=== PATIENT | female | born 1990 | race Caucasian/White ===

== ENCOUNTER 2018-09-22 11:35 | Outpatient (CLI) | payer MEDICAID ==
[~2018-09-22] VITALS: Ht 167.6 cm; Wt 58.6 kg
[~2018-09-22 11:35] MED LIST: DOXY1TAB3 PO; ONDA4TAB7 PO; PEDI18TA2 PO
[2018-09-22 12:40] VITALS: BP 112/65
== END 2018-09-22 13:15 | disposition home or self-care (01) ==
LOC: LDOP 11:35 → MERGE 11:35 → LDOP 13:15
PROVIDERS: ATTEND Obstetrics & Gynecology
DX: O26.893 Other specified pregnancy related conditions, third trimester (principal); Z3A.36 36 weeks gestation of pregnancy
CPT/HCPCS: 59025; 99211; G0463

== ENCOUNTER 2018-09-22 21:36 | Inpatient (IN) | payer MEDICAID ==
[~2018-09-22] VITALS: Ht 167.6 cm; Wt 59.0 kg
[2018-09-22 22:00] VITALS: BP 106/62
[2018-09-22 22:36] LABS: BASOPHILS # (AUTO) 0.04 x10^3/uL (0-0.1); BASOPHILS % (AUTO) 0 % (0-1); EOSINOPHILS # (AUTO) 0.01 x10^3/uL (0-0.4); EOSINOPHILS % (AUTO) 0 % (1-7); LYMPHOCYTES # (AUTO) 1.58 x10^3/uL (1-3.4); LYMPHOCYTES % (AUTO) 13 % (22-44); MD NO; MEAN CORPUSCULAR HEMOGLOBIN 28.9 pg (27.0-34.8); MEAN CORPUSCULAR HGB CONC 33.1 g/dL (32.4-35.8); MEAN CORPUSCULAR VOLUME 87.3 fL (80-100); MEAN PLATELET VOLUME 7.6 fL (7.4-10.4); MONOCYTES # (AUTO) 0.56 x10^3/uL (0.2-0.8); MONOCYTES % (AUTO) 5 % (2-9); NEUTROPHILS # (AUTO) 9.68 x10^3/uL (1.8-6.8); NEUTROPHILS % (AUTO) 82 % (42-75); PLATELET COUNT 206 x10^3/uL (130-400); RED BLOOD COUNT 3.88 x10^6/uL (3.82-5.3); RED CELL DISTRIBUTION WIDTH 14.9 % (9.6-15.2)
[2018-09-22] MEDS: LACTATED RINGERS 1,000 ML IV SCH ×2 (22:52→23:55)
[2018-09-22] MEDS ORDERED: FENTANYL PF 100 MCG/2ML ONE (23:09)
[2018-09-22] MEDS ORDERED: CALCIUM CARBONATE 500 MG TAB.CHEW ONE (23:19)
[2018-09-22] MEDS ORDERED: CALCIUM CARBONATE 500 MG TAB.CHEW PO PRN (23:30)
[2018-09-22] MEDS ORDERED: FENTANYL PF 100 MCG/2ML IV PRN (23:30)
[2018-09-22] MEDS ORDERED: FENTANYL PF 100 MCG/2ML IVPush PRN (23:30)
[2018-09-23] MEDS ORDERED: AMPICILLIN 2 GM in SODIUM CHLORIDE 0.9% 100 ML IVPB STA (00:04)
[2018-09-23] MEDS ORDERED: NEWBORN KIT ONE (00:04)
[2018-09-23] MEDS ORDERED: OXYTOCIN 30U/ 0.9% NaCL 500ML 500 ML IV ONE (00:04)
[2018-09-23] MEDS ORDERED: LIDOCAINE 1%, 20ML ONE (00:05)
[2018-09-23] MEDS ORDERED: OXYTOCIN 30U/ 0.9% NaCL 500ML 500 ML ONE (00:05)
[2018-09-23] MEDS ORDERED: MISOPROSTOL 200 MCG TABLET ONE (00:05)
[2018-09-23] MEDS ORDERED: SODIUM CITRATE/CITRIC ACID 15 ML UDC PO PRN (00:30)
[2018-09-23] MEDS ORDERED: ALUMINUM/MAG/SIMETHICONE 30 ML UDC PO PRN (00:30)
[2018-09-23] MEDS ORDERED: AMPICILLIN 1 GM in SODIUM CHLORIDE 0.9% 100 ML IVPB SCH (00:30)
[2018-09-23] MEDS ORDERED: ONDANSETRON 2MG/ML, 2ML IVPush PRN ×2 (00:30→03:30)
[2018-09-23] MEDS ORDERED: FENTANYL PF 100 MCG/2ML ONE ×3 (00:37→02:04)
[2018-09-23] MEDS ORDERED: FENTANYL/BUPIV./NS/PF 250 ML EPIDCONT SCH ×2 (00:43→01:16)
[2018-09-23] MEDS ORDERED: FENTANYL PF 100 MCG/2ML IVPush PRN (01:00)
[2018-09-23] MEDS ORDERED: FENTANYL PF 100 MCG/2ML IV PRN ×2 (01:00→03:30)
[2018-09-23] MEDS ORDERED: BUPIVACAINE 0.25% ONE (01:13)
[2018-09-23] MEDS ORDERED: LACTATED RINGERS 1,000 ML IV SCH (01:16)
[2018-09-23] MEDS ORDERED: NALOXONE 0.4 MG/ML, 1ML IVPush PRN (01:30)
[2018-09-23] MEDS ORDERED: LACTATED RINGERS 1,000 ML IVBOLUS PRN (01:30)
[2018-09-23] MEDS ORDERED: EPHEDRINE 50 MG/ML, 1ML IVPush PRN ×2 (01:30→03:30)
[2018-09-23] MEDS ORDERED: LIDOCAINE/PF 1.5%-EPI 1:200K, 30ML ONE (01:48)
[2018-09-23] MEDS ORDERED: FAMOTIDINE 20 MG/2 ML IVPush ONE (02:02)
[2018-09-23] MEDS ORDERED: OXYTOCIN 10 UNITS/ML, 1ML ONE (02:03)
[2018-09-23] MEDS ORDERED: ONDANSETRON 2MG/ML, 2ML ONE (02:03)
[2018-09-23] MEDS ORDERED: CEFAZOLIN 1,000 MG ONE (02:03)
[2018-09-23] MEDS ORDERED: SODIUM BICARBONATE 1 MEQ/ML, 50ML VIAL ONE (02:03)
[2018-09-23] MEDS ORDERED: EPHEDRINE 50 MG/ML, 1ML ONE (02:03)
[2018-09-23] MEDS ORDERED: KETOROLAC 30 MG/1 ML ONE (02:03)
[2018-09-23] MEDS ORDERED: DEXAMETHASONE 4 MG/ML, 1ML ONE (02:03)
[2018-09-23] MEDS ORDERED: PHENYLEPHRINE 10 MG/ML ONE (02:03)
[2018-09-23] MEDS ORDERED: SODIUM CITRATE/CITRIC ACID 15 ML UDC ONE (02:05)
[2018-09-23] MEDS ORDERED: HYDROmorphone 1 MG/ML, 1ML INJ IV PRN (03:20)
[2018-09-23] MEDS ORDERED: HYDROmorphone 2 MG/ML, 1ML ONE (03:26)
[2018-09-23] MEDS ORDERED: HYDROmorphone 2 MG/ML, 1ML IVPush PRN (03:30)
[2018-09-23] MEDS ORDERED: OXYcodone 5 MG/5 ML ORAL.SOL UDC PO PRN (03:30)
[2018-09-23] MEDS ORDERED: hydrALAzine 20 MG/ML, 1ML IV PRN (03:30)
[2018-09-23] MEDS ORDERED: PROMETHAZINE 25 MG/ML, 1ML IV PRN (03:30)
[2018-09-23] MEDS ORDERED: MEPERIDINE/PF 25MG/0.5ML IVPush PRN (03:30)
[2018-09-23] MEDS ORDERED: LABETALOL 5MG/ML, 20ML IV PRN (03:30)
[2018-09-23] MEDS ORDERED: HYDROcodone/APAP 7.5-325MG/15ML UDC PO PRN (03:30)
[2018-09-23] MEDS ORDERED: MIDAZOLAM 1 MG/ML, 2ML IV PRN (03:30)
[2018-09-23] MEDS: HYDROmorphone 2 MG/ML, 1ML IVPush PRN ×3 (03:35→04:47)
[2018-09-23] MEDS: LACTATED RINGERS 1,000 ML IV SCH ×5 (03:42→17:17)
[2018-09-23 05:40] VITALS: BP 107/66
[2018-09-23] MEDS: OXYTOCIN 30U/ 0.9% NaCL 500ML 500 ML IV SCH ×2 (06:21→17:18)
[2018-09-23] MEDS ORDERED: METHYLERGONOVINE 0.2 MG/ML IM PRN (06:30)
[2018-09-23] MEDS ORDERED: DIPH,PERTUSS(ACELL),TET VAC/PF NC IM-VACC PRN (06:30)
[2018-09-23] MEDS ORDERED: ACETAMINOPHEN 325 MG TABLET PO PRN ×3 (06:30)
[2018-09-23] MEDS ORDERED: ONDANSETRON 2MG/ML, 2ML IV PRN (06:30)
[2018-09-23] MEDS ORDERED: GLYCERIN ADULT SUPP PR PRN (06:30)
[2018-09-23] MEDS ORDERED: MEPERIDINE/PF 50 MG/ML IM PRN (06:30)
[2018-09-23] MEDS ORDERED: CALCIUM CARBONATE 500 MG TAB.CHEW PO PRN (06:30)
[2018-09-23] MEDS ORDERED: CARBOPROST TROMETHAMINE 250 MCG/ML, 1ML IM PRN (06:30)
[2018-09-23] MEDS ORDERED: HYDROcodone/APAP 5/325 TABLET PO PRN (06:30)
[2018-09-23] MEDS ORDERED: MISOPROSTOL 200 MCG TABLET PR PRN ×2 (06:30)
[2018-09-23] MEDS ORDERED: MEPERIDINE/PF 50 MG/ML IVPush PRN (06:30)
[2018-09-23] MEDS ORDERED: MISOPROSTOL 200 MCG TABLET PO PRN (06:30)
[2018-09-23] MEDS ORDERED: SODIUM CITRATE/CITRIC ACID 15 ML UDC PO ONE (06:30)
[2018-09-23] MEDS ORDERED: OXYcodone IR 5MG TABLET PO PRN ×2 (06:30)
[2018-09-23] MEDS ORDERED: BISACODYL 10 MG SUPP PR PRN (06:30)
[2018-09-23] MEDS: OXYcodone/APAP 5/325MG TABLET PO PRN ×4 (07:46→21:06)
[2018-09-23 07:59] VITALS: BP 109/70
[2018-09-23] MEDS: PRENATAL VIT/IRON/FA 1 EACH TABLET PO SCH (09:00)
[2018-09-23] MEDS: KETOROLAC 30 MG/1 ML IV PRN ×3 (09:18→21:06)
[2018-09-23 11:15] VITALS: BP 110/72
[2018-09-23 11:49] LABS: BASOPHILS # (AUTO) 0.01 x10^3/uL (0-0.1); BASOPHILS % (AUTO) 0 % (0-1); EOSINOPHILS % (AUTO) 0 % (1-7); LYMPHOCYTES # (AUTO) 0.57 x10^3/uL (1-3.4); LYMPHOCYTES % (AUTO) 4 % (22-44); MD NO; MEAN CORPUSCULAR HEMOGLOBIN 28.8 pg (27.0-34.8); MEAN CORPUSCULAR HGB CONC 32.4 g/dL (32.4-35.8); MEAN CORPUSCULAR VOLUME 88.9 fL (80-100); MEAN PLATELET VOLUME 7.9 fL (7.4-10.4); MONOCYTES # (AUTO) 0.79 x10^3/uL (0.2-0.8); MONOCYTES % (AUTO) 5 % (2-9); NEUTROPHILS # (AUTO) 13.82 x10^3/uL (1.8-6.8); NEUTROPHILS % (AUTO) 91 % (42-75); PLATELET COUNT 181 x10^3/uL (130-400); RED BLOOD COUNT 3.38 x10^6/uL (3.82-5.3); RED CELL DISTRIBUTION WIDTH 14.9 % (9.6-15.2)
[2018-09-23 15:35] VITALS: BP 102/64
[2018-09-23] MEDS: SIMETHICONE 80 MG CHEW TAB PO PRN ×2 (16:49→23:05)
[2018-09-23 19:15] VITALS: BP 98/57
[2018-09-23] MEDS: DOCUSATE 100 MG CAPSULE PO PRN (21:06)
[2018-09-24] MEDS: OXYcodone/APAP 5/325MG TABLET PO PRN ×4 (01:04→17:44)
[2018-09-24 01:07] VITALS: BP 108/71
[2018-09-24] MEDS: OXYTOCIN 30U/ 0.9% NaCL 500ML 500 ML IV SCH ×3 (02:21→22:21)
[2018-09-24] MEDS: LACTATED RINGERS 1,000 ML IV SCH ×3 (02:21→22:21)
[2018-09-24] MEDS: IBUPROFEN 600 MG TABLET PO PRN ×3 (03:04→14:34)
[2018-09-24] MEDS: SIMETHICONE 80 MG CHEW TAB PO PRN ×2 (04:57→09:02)
[2018-09-24 08:37] VITALS: BP 110/71
[2018-09-24] MEDS: PRENATAL VIT/IRON/FA 1 EACH TABLET PO SCH (09:00)
[2018-09-24] MEDS: DOCUSATE 100 MG CAPSULE PO PRN (09:02)
[2018-09-24 20:00] VITALS: BP 108/65
[2018-09-25] MEDS: SIMETHICONE 80 MG CHEW TAB PO PRN ×2 (00:47→06:45)
[2018-09-25] MEDS: DOCUSATE 100 MG CAPSULE PO PRN ×2 (00:47→10:45)
[2018-09-25] MEDS: IBUPROFEN 600 MG TABLET PO PRN ×2 (00:47→06:45)
[2018-09-25] MEDS: OXYcodone/APAP 5/325MG TABLET PO PRN ×3 (01:24→10:45)
[2018-09-25 07:10] VITALS: BP 103/63
[2018-09-25] MEDS: OXYTOCIN 30U/ 0.9% NaCL 500ML 500 ML IV SCH (08:21)
[2018-09-25] MEDS: LACTATED RINGERS 1,000 ML IV SCH (08:21)
[2018-09-25] MEDS ORDERED: FERR325T23 PO (09:45)
[2018-09-25] MEDS ORDERED: DOCU-131 PO (09:45)
[2018-09-25] MEDS ORDERED: IBUP-1222 PO (09:47)
[2018-09-25] MEDS ORDERED: OXYC-302 PO (09:48)
[2018-09-25] MEDS: PRENATAL VIT/IRON/FA 1 EACH TABLET PO SCH (10:45)
== END 2018-09-25 13:50 | disposition home or self-care (01) | DRG 783 ==
LOC: LDOP 21:36 → LDIP 09-23 00:11 → 2NW 09-23 05:27
PROVIDERS: ADMIT Obstetrics & Gynecology; ATTEND Obstetrics & Gynecology
PROC: 10D00Z1 Extraction of Products of Conception, Low, Open Approach (ICD-10-PCS; principal; 2018-09-23)
PROC: 0UT70ZZ Resection of Bilateral Fallopian Tubes, Open Approach (ICD-10-PCS; 2018-09-23)
DX: O32.8XX0 Maternal care for other malpresentation of fetus, not applicable or unspecified (principal); O60.14X0 Preterm labor third trimester with preterm delivery third trimester, not applicable or unspecified; O34.211 Maternal care for low transverse scar from previous cesarean delivery; Z3A.36 36 weeks gestation of pregnancy; Z37.0 Single live birth; F32.9 Major depressive disorder, single episode, unspecified; F41.9 Anxiety disorder, unspecified; O99.344 Other mental disorders complicating childbirth; O99.334 Smoking (tobacco) complicating childbirth; F17.210 Nicotine dependence, cigarettes, uncomplicated; O99.824 Streptococcus B carrier state complicating childbirth; O69.81X0 Labor and delivery complicated by cord around neck, without compression, not applicable or unspecified; Z88.8 Allergy status to other drugs, medicaments and biological substances
CPT/HCPCS: 36415; 82803; 85025; 86850; 86900; 88302; 88307; G0378; J0290; J0690; J1100; J1170; J1885; J2405; J3010; J2370; J2590; J7120

== ENCOUNTER 2018-10-11 09:39 | Emergency (ER) | payer MEDICAID ==
[~2018-10-11] VITALS: Ht 167.6 cm; Wt 52.9 kg
[~2018-10-11 09:39] MED LIST changes: +DOCU-131 PO; +FERR325T23 PO; +IBUP-1222 PO; +OXYC-302 PO
--- NOTE | 2018-10-11 10:05 | NUR ---
Pt presents with for generalized CALVERT x 10days. Pt states no relief with percocet or ibuprofen at home. Unable to sleep. Generally feels unwell. Pt states BP was 150s/90s at home. Mild nausea. No other sx noted.
[2018-10-11] MEDS ORDERED: KETOROLAC 30 MG/1 ML ONE (10:13)
[2018-10-11] MEDS ORDERED: PROCHLORPERAZINE 5 MG/ML, 2ML ONE (10:13)
[2018-10-11] MEDS ORDERED: KETOROLAC 30 MG/1 ML IVPush ONE (10:30)
[2018-10-11] MEDS ORDERED: SODIUM CHLORIDE 0.9% 1,000ML IVBOLUS ONE (10:30)
[2018-10-11] MEDS ORDERED: PROCHLORPERAZINE 5 MG/ML, 2ML IVPush ONE (10:30)
--- NOTE | 2018-10-11 10:48 | NUR ---
bedside report from Arthur RN, pt resting in [facility]. IVF infusing.
[2018-10-11] MEDS ORDERED: DIAZEPAM 5 MG/ML, 2ML ONE (11:23)
[2018-10-11] MEDS ORDERED: DIAZEPAM 5 MG/ML, 2ML IV ONE (11:30)
--- NOTE | 2018-10-11 11:47 | NUR ---
PT STATES CALVERT RELIEF AFTER IV VALIUM
[2018-10-11 12:03] VITALS: BP 130/91
== END 2018-10-11 12:25 | disposition home or self-care (01) ==
LOC: ED 11:56
DX: G44.211 Episodic tension-type headache, intractable (principal); Z87.891 Personal history of nicotine dependence
CPT/HCPCS: 96374; 96375; 99283; J1885; J3360; J7030; J0780

== ENCOUNTER 2019-04-03 19:17 | Emergency (ER) | payer MEDICAID ==
[~2019-04-03] VITALS: Ht 166.4 cm; Wt 49.4 kg
[2019-04-03 21:04] LABS: BASOPHILS # (AUTO) 0.02 x10^3/uL (0-0.1); BASOPHILS % (AUTO) 1 % (0-1); EOSINOPHILS # (AUTO) 0.08 x10^3/uL (0-0.4); EOSINOPHILS % (AUTO) 2 % (1-7); LYMPHOCYTES # (AUTO) 1.61 x10^3/uL (1-3.4); LYMPHOCYTES % (AUTO) 35 % (22-44); MD NO; MEAN CORPUSCULAR HGB CONC 32.8 g/dL (32.4-35.8); MEAN CORPUSCULAR VOLUME 94.8 fL (80-100); MEAN PLATELET VOLUME 8.3 fL (7.4-10.4); MONOCYTES % (AUTO) 7 % (2-9); NEUTROPHILS # (AUTO) 2.57 x10^3/uL (1.8-6.8); NEUTROPHILS % (AUTO) 56 % (42-75); PLATELET COUNT 252 x10^3/uL (130-400); RED BLOOD COUNT 4.21 x10^6/uL (3.82-5.3); RED CELL DISTRIBUTION WIDTH 13.8 % (9.6-15.2)
[2019-04-03 21:14] LABS: ALANINE AMINOTRANSFERASE 18 U/L (12-78); ANION GAP 4 mmol/L (5-15); CALCIUM 8.6 mg/dL (8.5-10.1); CHLORIDE 113 mmol/L (98-107); CREATININE 0.84 mg/dL (0.55-1.02)
[2019-04-03 21:19] LABS: ALKALINE PHOSPHATASE 68 U/L (45-117); BILIRUBIN,TOTAL 0.6 mg/dL (0.2-1.0); TOTAL PROTEIN 6.9 g/dL (6.4-8.2)
--- NOTE | 2019-04-03 21:29 | NUR ---
PT A&OX4, RESP EVEN & UNLABORED, SPEECH CLEAR, SKIN WNL. C/O EPIGASTRIC PAIN - STARTED "AFTER THE DOCTOR IRRITATED IT THIS PUSH" - HE PUSHED ON ABD"AND FOUND A HERNIA". [facility] ON [facility] WENT TO FOR NAUSEA - STARTED 2 WEEKS AGO. NO OTC MEDS TAKEN FOR NAUSEA. STATES NAUSEA USUALLY GOES AWAY MID-DAY, BUT DIDN'T TODAY. LAST ORAL INTAKE: YESTERDAY, SMALL SIPS OF WATER TODAY. LAST BM: YESTERDAY. LMP: 04/01/19 SEXUALLY ACTIVE, UNPROTECTED. DENIES STD HX.
--- NOTE | 2019-04-03 21:38 | NUR ---
PT NOTIFIED OF NEED FOR URINE SPECIMEN. STATES "I CAN'T GO". INFORMED HER OF POTENTIAL NEED FOR QUICK CATH SPECIMEN IF UNABLE TO PRODUCE VOIDED SPECIMEN.
[2019-04-03 21:40] VITALS: BP 108/63
--- NOTE | 2019-04-03 21:50 | NUR ---
PT DENIES HX MRSA
--- NOTE | 2019-04-03 21:52 | NUR ---
PT REPORT TO MARTIR LAU. PT CARE TRANSFERRED.
[2019-04-03] MEDS ORDERED: PROMETHAZINE 25MG TABLET ONE (21:56)
[2019-04-03] MEDS ORDERED: FAMOTIDINE 20 MG TABLET ONE (21:56)
[2019-04-03] MEDS ORDERED: MAALOX/HYOSCYAMINE/LIDOCAINE 45 ML BTL ONE (21:57)
[2019-04-03] MEDS ORDERED: MAALOX/HYOSCYAMINE/LIDOCAINE 45 ML BTL PO ONE (22:00)
[2019-04-03] MEDS ORDERED: PROMETHAZINE 25MG TABLET PO ONE (22:00)
[2019-04-03] MEDS ORDERED: FAMOTIDINE 20 MG TABLET PO ONE (22:00)
== END 2019-04-03 22:54 | disposition home or self-care (01) ==
LOC: ED 21:21
DX: K42.9 Umbilical hernia without obstruction or gangrene (principal); R10.13 Epigastric pain; R11.0 Nausea
CPT/HCPCS: 36415; 74021; 80053; 83690; 84703; 85025; 99284; Q0169